=== PATIENT | male | born 1960 | race Caucasian/White ===

== ENCOUNTER 2017-03-04 16:32 | Emergency (ER) | payer BC, MEDICAID, OTHER ==
--- NOTE | 2017-03-04 17:04 | EDM.PDOC ---
ED HPI GENERAL MEDICAL PROBLEM - General Chief Complaint: Chest Pain Stated Complaint: CHEST TIGHTNESS Time Seen by Provider: 03/04/17 16:45 Source of Information: Reports: Patient History Limitations: Reports: No Limitations - History of Present Illness INITIAL COMMENTS - FREE TEXT/NARRATIVE: 56-year-old male has been having intermittent chest pressure since this morning. It's epigastric, less only 5-10 seconds and at times radiates through the back. It is very localized to the epigastric and substernal area, no other radiation, no nausea or vomiting, no diaphoresis, no shortness of breath. While I was interviewing the patient he had 2 episodes that lasted 4-6 seconds. There is no relation to activity or position, no pain with breathing. He has no previous cardiac tests or diagnosed cardiac history but does have a fairly strong family history of congestive heart failure. Onset: Today Quality: Reports: Pressure, Other (Squeezing sensation, not really pain) Severity: Mild Improves with: Reports: None Worsens with: Reports: None Associated Symptoms: Reports: No Other Symptoms Left Chest Pain Score (Numeric/FACES): 4 - Related Data Allergies Allergy/AdvReac Type Severity Reaction Status Date / Time No Known Allergies Allergy Verified 03/04/17 16:47 Home Meds: Home Meds atorvaSTATin [Lipitor] 20 mg PO BEDTIME 02/27/16 [History] metFORMIN [Glucophage] 850 mg PO TIDMEALS 02/27/16 [History] Gluc 2KCl/Chondr/Jsoé Antonio Hy/Hy Ac [Glucosamine & Chondroitin Cap] 2 each PO DAILY 03/04/17 [History] Past Medical History HEENT History: Reports: Allergic Rhinitis, Impaired Vision Cardiovascular History: Reports: High Cholesterol Gastrointestinal History: Reports: GERD Genitourinary History: Reports: Renal Calculus Musculoskeletal History: Reports: Fracture Endocrine/Metabolic History: Reports: Diabetes, Type II, Obesity/BMI 30+ - Infectious Disease History Infectious Disease History: Reports: Chicken Pox, Shingles - Past Surgical History HEENT Surgical History: Reports: Adenoidectomy, Tonsillectomy Cardiovascular Surgical History: Reports: None GI Surgical History: Reports: None Male Surgical History: Reports: Lithotripsy (ESWL) Endocrine Surgical History: Reports: None Musculoskeletal Surgical History: Reports: None Social & Family History - Tobacco Use Smoking Status *Q: Never Smoker Second Hand Smoke Exposure: No - Caffeine Use Caffeine Use: Reports: Soda - Alcohol Use Days Per Week of Alcohol Use: 0 - Recreational Drug Use Recreational Drug Use: No ED ROS GENERAL - Review of Systems Review Of Systems: See Below Constitutional: Denies: Fever, Chills, Malaise HEENT: Reports: No Symptoms Respiratory: Denies: Shortness of Breath, Pleuritic Chest Pain, Cough Cardiovascular: Reports: Chest Pain GI/Abdominal: Reports: Abdominal Pain (Epigastric area only). Denies: Decreased Appetite, Nausea, Vomiting : Reports: No Symptoms Musculoskeletal: Reports: No Symptoms Skin: Reports: No Symptoms Neurological: Reports: No Symptoms. Denies: Headache Psychiatric: Reports: No Symptoms ED EXAM, GENERAL - Physical Exam Exam: See Below Exam Limited By: No Limitations General Appearance: Alert, No Apparent Distress Eye Exam: Bilateral Eye: Normal Inspection Respiratory/Chest: No Respiratory Distress, Lungs Clear Cardiovascular: Regular Rate, Rhythm, No Murmur GI/Abdominal: Soft, Non-Tender, Other (Moderately obese) Extremities: Normal Inspection. No: Pedal Edema Neurological: Alert, Oriented, No Motor/Sensory Deficits Psychiatric: Normal Affect, Normal Mood Skin Exam: Warm, Dry EKG INTERPRETATION Rhythm: NSR Course - Vital Signs Last Recorded V/S: Last Vital Signs Temp 96.8 F 03/04/17 18:01 Pulse 70 03/04/17 18:01 Resp 16 03/04/17 18:01 BP 142/92 H 03/04/17 18:01 Pulse Ox 97 03/04/17 18:01 - Orders/Labs/Meds Labs: Laboratory Tests 03/04/17 03/04/17 Range/Units 17:00 17:00 WBC 8.1 (4.5-11.0) K/uL RBC 5.15 (4.30-5.90) M/uL Hgb 14.9 (12.0-15.0) g/dL Hct 43.3 (40.0-54.0) % MCV 84 (80-98) fL MCH 29 (27-31) pg MCHC 34 (32-36) % Plt Count 293 (150-400) K/uL Neut % (Auto) 45 (36-66) % Lymph % (Auto) 42 (24-44) % Rusk % (Auto) 8 H (2-6) % Eos % (Auto) 5 H (2-4) % Baso % (Auto) 1 (0-1) % Sodium 140 (140-148) mmol/L Potassium 4.5 (3.6-5.2) mmol/L Chloride 103 (100-108) mmol/L Carbon Dioxide 30 (21-32) mmol/L Anion Gap 6.7 (5.0-14.0) mmol/L BUN 17 (7-18) mg/dL Creatinine 1.1 (0.8-1.3) mg/dL Est Cr Clr Drug Dosing 62.04 mL/min Estimated GFR (MDRD) > 60 (>60) Glucose 165 H (74-106) mg/dL Calcium 9.2 (8.5-10.1) mg/dL Total Bilirubin 0.4 (0.2-1.0) mg/dL AST 20 (15-37) U/L ALT 47 (12-78) U/L Alkaline Phosphatase 116 (46-116) U/L Troponin I < 0.017 (0.000-0.056) ng/mL Total Protein 7.1 (6.4-8.2) g/dL Albumin 3.6 (3.4-5.0) g/dL Globulin 3.5 (2.3-3.5) g/dL Albumin/Globulin Ratio 1.0 L (1.2-2.2) - Re-Assessments/Exams Free Text/Narrative Re-Assessment/Exam: 03/04/17 17:[address] changes. Reassured the patient that this does not sound like cardiac pain but more like esophageal irritation, but a CBC, CMP, troponin were obtained for reassurance. 03/04/17 17:50 Patient remained comfortable while in the emergency room. He has an appointment with his primary care provider tomorrow. I recommended daily omeprazole, and discuss setting up a stress test sometime in the near future. Departure - Departure Time of Disposition: 18:03 Disposition: Home, Self-Care 01 Condition: Good Clinical Impression: Atypical chest pain - Discharge Information Instructions: Nonspecific Chest Pain, [id number] Referrals: Tristan Flores MD [Primary Care Provider] - Forms: ED Department Discharge Care Plan Goals: Consider daily omeprazole to try to control symptoms, and discuss a stress test with your primary care provider tomorrow at your scheduled appointment.
[2017-03-04 18:03] VITALS: BP 142/92
== END 2017-03-04 18:03 | disposition home or self-care (01) ==
LOC: JP.ED 16:32
DX: R07.89 Other chest pain (principal); E78.00 Pure hypercholesterolemia, unspecified; E11.9 Type 2 diabetes mellitus without complications; Z79.84 Long term (current) use of oral hypoglycemic drugs
CPT/HCPCS: 36415; 80053; 84484; 85025; 93005; 99285-25